=== PATIENT | female | born 1960 | race Caucasian/White ===

== ENCOUNTER → 2017-06-13 | Outpatient (CLI) | payer OTHER | LOC: MC.RAD 08:56 | DX: Z12.31 Encounter for screening mammogram for malignant neoplasm of breast (principal); N64.89 Other specified disorders of breast ==

== ENCOUNTER → 2017-06-19 | Outpatient (CLI) | payer OTHER | LOC: MC.RAD 13:00 | DX: N63 Unspecified lump in breast (principal); N64.89 Other specified disorders of breast ==

== ENCOUNTER → 2021-09-13 | Outpatient (CLI) | payer BC ==
[~2021-09-13] MED LIST: BENADRYL50 MG PO; MULTIVITAMIN SEN PO; NORCO 325 MG-51 TAB PO
== END ==
LOC: MC.RAD 13:00
DX: C50.912 Malignant neoplasm of unspecified site of left female breast (principal); N63.20 Unspecified lump in the left breast, unspecified quadrant
CPT/HCPCS: A9541; C1769

== ENCOUNTER 2021-09-14 07:05 | Day surgery (SDC) | payer BC ==
[~2021-09-14] VITALS: Ht 177.8 cm; Wt 83.0 kg
[2021-09-14] VITALS (8 sets, daily range): BP systolic 107–113; BP diastolic 55–73; PULSE 68–76; TEMP 97.3–98.5
[2021-09-14] MEDS ORDERED: MULTIVITAMIN SEN PO (09:23)
[2021-09-14] MEDS ORDERED: BENADRYL50 MG PO (09:23)
--- NOTE | 2021-09-14 10:00 | NUR ---
Patient arrirved from Radiology, accompanied by RN. Vitals obtained. Height and weight obtained. Consent signed. Medications reviewed. Lung sounds are clear. Heart is in sinus rythm. Bowel sounds are presentin x4 quadrants. IV started in L hand with #20. LR is infusing without difficulty. Call mitchell is within reach. Warm blanket provided. Non-slip socks are on. Will continue to monitor.
[2021-09-14] MEDS ORDERED: NORCO 325 MG-51 TAB PO (11:29)
--- NOTE | 2021-09-14 12:15 | NUR ---
Patient arrived from PACU on cart, escorted by Whitley GARCÍA. Patient is pale and only responds to stimuli. She is oriented, but very sleepy. Vitals obtained. Call mitchell and emisis bag is within reach. Will continue to monitor. Dressing is clean, dry and intact, without drainage.
--- NOTE | 2021-09-14 12:30 | NUR ---
Patient is still very sleepy. Vitals obtained. Call mitchell is within reach. Will continue to monitor.
--- NOTE | 2021-09-14 12:45 | NUR ---
Patient arouses to her name, however is still very sleepy. Vitals obtained and are stable, WNL. Call mitchell is next to her right hand. Will continue to monitor.
--- NOTE | 2021-09-14 13:00 | NUR ---
Patients is present, however the patient is still very sleepy. states that she typically is very slow to awaken after any procedure that requires anesthesia. Patient was able to have a sip of water and is tolerating it well. Will continue to monitor and let her rest. Call mitchell is on bedside table. Vitals obtained.
--- NOTE | 2021-09-14 13:30 | NUR ---
Patient is alert and oriented x3, however states still tired. Vitals obtained. Patient is tolerating her water and sprite well. Her is still present. Patient expressed desire to be discharged, but criteria has not been met. Patient was educated on our policy and the importance of voiding and having a snack before leaving. Patient verbalized understanding at this time. Will continue to monitor. Call mitchell is witin reach.
--- NOTE | 2021-09-14 14:00 | NUR ---
Patient is alert and oriented x3, tolerating fluids well. Patient said she would try a saltine cracker, however is nervous about becoming sick. Vitals obtained. Will continue to monitor.
--- NOTE | 2021-09-14 14:40 | NUR ---
Patient is tolerating saltines. States no N/V. Patient required assistance ambulating to BR with RN and . Patient was able to void successfully and states desire to be discharged.
--- NOTE | 2021-09-14 15:19 | NUR ---
IV discontinued at this time due to discharge. Catheter tip intact. Pressure dressing applied. No redness or swelling present. Discharge instructions reviewed. Patient and verbalized understanding. Lima signed related paperwork. Patient has her personal beloingings. Escorted out by wheelchair to [facility] by RAQUEL Kaur. Patient was transferred into the care of her , who is driving.
== END 2021-09-14 15:25 | disposition home or self-care (01) ==
LOC: SDCO 07:05
DX: C50.412 Malignant neoplasm of upper-outer quadrant of left female breast (principal); Z19.1 Hormone sensitive malignancy status; Z17.0 Estrogen receptor positive status [ER+]
CPT/HCPCS: A4648; J0690; J1100; J1885; J2250; J2405; J2550; J2704; J2795; J3010; Q9968